=== PATIENT | female | born 1975 | race Caucasian/White ===

== ENCOUNTER → 2023-08-28 11:32 | Outpatient (REF) | payer OTHER, SELFPAY | LOC: RAD 11:32 | PROVIDERS: ATTENDING PHYSICIAN Family Medicine | DX: R22.2 Localized swelling, mass and lump, trunk (principal) | CPT/HCPCS: 76604 ==

== ENCOUNTER → 2023-10-08 13:59 | Outpatient (REF) | payer OTHER, SELFPAY | LOC: RAD 13:59 | PROVIDERS: ATTENDING PHYSICIAN Obstetrics & Gynecology; FAMILY PHYSICIAN Family Medicine | DX: N92.0 Excessive and frequent menstruation with regular cycle (principal) | CPT/HCPCS: 76830; 76856 ==

== ENCOUNTER → 2023-10-15 15:26 | Outpatient (REF) | payer OTHER, SELFPAY | LOC: WDC 15:26 | PROVIDERS: ATTENDING PHYSICIAN Obstetrics & Gynecology; FAMILY PHYSICIAN Family Medicine | DX: Z12.31 Encounter for screening mammogram for malignant neoplasm of breast (principal) | CPT/HCPCS: 77063; 77067 ==

== ENCOUNTER → 2023-11-15 17:11 | Outpatient (REF) | payer OTHER, SELFPAY | LOC: MRI 3T 17:11 | PROVIDERS: ATTENDING PHYSICIAN Family Medicine; FAMILY PHYSICIAN Family Medicine | DX: M95.4 Acquired deformity of chest and rib (principal) | CPT/HCPCS: 71550 ==

== ENCOUNTER → 2023-12-14 19:27 | Outpatient (REF) | payer OTHER, SELFPAY | LOC: MRI 19:27 | PROVIDERS: ATTENDING PHYSICIAN Specialist; FAMILY PHYSICIAN Family Medicine | DX: M25.512 Pain in left shoulder (principal); R93.89 Abnormal findings on diagnostic imaging of other specified body structures | CPT/HCPCS: 72197; 73221; A9575 ==

== ENCOUNTER → 2024-01-14 11:15 | Outpatient (REF) | payer OTHER, SELFPAY | LOC: RADI 11:15 | PROVIDERS: ATTENDING PHYSICIAN Obstetrics & Gynecology; FAMILY PHYSICIAN Family Medicine | DX: D25.9 Leiomyoma of uterus, unspecified (principal) ==

== ENCOUNTER 2024-03-05 11:02 | Day surgery (SDC) | payer OTHER, SELFPAY ==
[2024-03-05] VITALS (12 sets, daily range): BP systolic 66–152; BP diastolic 58–90; BMI 22.1
[2024-03-05 08:08] LABS: HCG, Urine Qualitative Screen Negative
[2024-03-05 08:11] LABS: INR 0.94
[2024-03-05 08:42] LABS: Blood Urea Nitrogen 15 mg/dl (7-17); Estimated Creatinine Clearance 80 ml/min
[2024-03-05] MEDS: ZOFRAN 8 MG PO (08:44)
[2024-03-05] MEDS: ANCEF 10 IV (08:45)
[2024-03-05] MEDS: OXYCONTIN (CONTROLLED RELEASE) 10 MG PO (08:45)
[2024-03-05] MEDS: DECADRON 10 MG IV (08:45)
[2024-03-05] MEDS: ATIVAN 1 MG PO (08:45)
[2024-03-05 08:47] LABS: Hematocrit 39.4 % (37.0-47.0); Hemoglobin 13.4 g/dL (12.0-16.0); Mean Corpuscular Hgb 29.9 pg (27.0-31.0); Mean Corpuscular Volume 87.9 fL (81.0-99.0); Mean Platelet Volume 11.3 fL (7.4-10.4); Platelet Count 227 10^3/uL (130-400); Red Blood Cell Count 4.48 10^6/uL (4.20-5.40); Red Cell Dist. Width 15.9 % (11.5-14.5); White Blood Cell Count 5.5 10^3/uL (4.8-10.8)
[2024-03-05] MEDS: NSS 1000 IV ×2 (11:40→22:31)
[2024-03-05] MEDS: OFIRMEV 100 IV (11:40)
[2024-03-05] MEDS: DILAUDID 0.5 MG IV (12:45)
[2024-03-05] MEDS: ZOFRAN 4 MG IV (13:37)
--- NOTE | 2024-03-05 14:05 | PTCARENOTE ---
Received pt AAOx3 lungs clear bilaterally, apical regular 77bpm. abdomen soft nontender bowel sounds x4 right groin site dressing D/I. positive femoral pulses bilaterally, humphreys draining clear yellow urine, positive pedal pulses bilaterally, av foot
pumps maintained. IV running without difficulty. at bedside.call trevizo in reach
[2024-03-05] MEDS: TORADOL 10 MG IV ×2 (15:53→21:37)
--- NOTE | 2024-03-05 16:43 | PTCARENOTE ---
1530 femoral band aid D/I
[2024-03-05] MEDS: ROXICODONE 5 MG PO ×2 (17:33→21:36)
[2024-03-06] VITALS: BP 130/80
[2024-03-06] MEDS: TORADOL 10 MG IV ×2 (04:11→09:34)
[2024-03-06 04:15] VITALS: BP 131/82
--- NOTE | 2024-03-06 08:00 | W.PN.GENERIC ---
Assessment / Plan
-
49 yo female with H/O of uterine fibroids who underwent UAE yesterday.
She is having cramping as expected
She is tolerating POs
She is voiding spontaneously
Plan to discharge home today
I spent over 30 minute in counseling and coordination of care with the patient, reviewing previous medical records, laboratory studies and relevant imaging as well as discussing the results of the procedure, post procedure care and expected
outcome with the patient
Physician Progress Note
Subjective
Marley is a pleasant 48-year-old female with history of uterine fibroids. She has abnormal bleeding and menorrhagia. She has been anemic in the past with a hemoglobin of 6.2. She does get iron infusions for this. She underwent UAE in [place]
yesterday. She denies fever, chills, vomiting, dysuria. She has some cramping and nausea as expected. She is tolerating POs and voiding spontaneously.
PMH: Uterine fibroids, iron deficiency anemia.
PSH: x3, Endometrial biopsy.
Social History: She denies tobacco use. She occasionally drinks alcohol. She is an ICU nurse here at the hospital.
Allergies: NKDA.
Current Medications: Zinc 20 mg, ibuprofen 600 mg, vitamin D3 50 mcg.
Objective
Vital Signs
Temp Pulse Resp BP Pulse Ox
97.9 F 78 16 131/82 100
03/06/24 04:15 03/06/24 04:15 03/06/24 04:15 03/06/24 04:15 03/05/24 12:00
Lab Results
03/05/24 07:32
03/05/24 07:32
Physical examination: This is a well-nourished, well-developed 48-year-old female. She is awake alert and oriented in no acute distress. Her color is good. Her skin is warm and dry. Her hear is regular. Her lungs are CTA. Her abdomen is soft and
mildly tender with BS present. No calf tenderness. Groin dressing CDI. No hematoma. No lower extremity edema. Palpable inguinal and pedal pulses.
[2024-03-06 08:06] VITALS: BP 124/73
== END 2024-03-06 10:46 | disposition home or self-care (01) ==
LOC: RADI 11:02
PROVIDERS: ATTENDING PHYSICIAN Radiology Diagnostic Radiology; FAMILY PHYSICIAN Family Medicine
DX: D25.9 Leiomyoma of uterus, unspecified (principal); D50.9 Iron deficiency anemia, unspecified
CPT/HCPCS: 37243; 36246; 36415; 75736; 76937; 81025; 82565; 84520; 85027; 85610; 99152; 99153; C1769; C1887